=== PATIENT | female | born 1980 | race Caucasian/White ===

== ENCOUNTER 2021-03-01 07:24 | Inpatient (IN) | payer BC ==
[~2021-03-01] VITALS: Ht 180.3 cm; Wt 119.7 kg
[~2021-03-01 07:24] MED LIST: PANTOPRAZOLE SODIUM 40 MG TABLET.DR PO SCH
--- NOTE | 2021-03-01 07:43 | NUR ---
[email or web address], medical screening exam in progress
[2021-03-01] MEDS ORDERED: VANCOMYCIN IV 1,000 MG in IV DEXTROSE 5% 250 ML IV ONE (07:45)
[2021-03-01] MEDS ORDERED: CEFTRIAXONE 2 G in IV DEXTROSE 5% 100 ML IV ONE (07:45)
[2021-03-01] MEDS ORDERED: IV NORMAL SALINE 500 ML BAG IV ONE (07:45)
[2021-03-01] MEDS ORDERED: ROSU10TA2 PO (07:46)
[2021-03-01] MEDS ORDERED: METF-440 PO (07:46)
[2021-03-01] MEDS ORDERED: FLUO40CA8 PO (07:46)
[2021-03-01] MEDS ORDERED: LORAZEPAM 2 MG/1 ML VIAL IV ONE (08:00)
[2021-03-01] MEDS ORDERED: VANCOMYCIN IV 200 ML ONE (08:04)
[2021-03-01 08:13] LABS: HEMATOCRIT 38.8 % (31.2-41.9); MEAN CORPUSCULAR HEMOGLOBIN 31.4 uug (24.7-32.8); MEAN CORPUSCULAR VOLUME 90.9 fL (75.5-95.3); PLATELET COUNT (AUTO) 350 K/uL (179-408)
[2021-03-01 08:36] LABS: BILIRUBIN,TOTAL 0.8 mg/dL (0.2-1.0); CREATININE 0.9 mg/dL (0.6-1.3); POTASSIUM 3.7 mmol/L (3.5-5.1); TOTAL PROTEIN, SERUM 9.2 g/dL (6.4-8.2)
[2021-03-01] MEDS ORDERED: LORAZEPAM 2 MG/1 ML VIAL ONE (08:36)
[2021-03-01] MEDS ORDERED: CLINDAMYCIN PHOSPHATE IV 900 MG in IV DEXTROSE 5% 100 ML IV ONE (08:45)
[2021-03-01] MEDS ORDERED: CLINDAMYCIN 900MG/D5W 100ML IVPB **ER PYXIS ONLY IJ ONE (08:50)
--- NOTE | 2021-03-01 08:55 | NUR ---
Patient is resting comfortably on gurney with eyes closed, pending available med-surgical bed & accepting [email or web address] time
[2021-03-01] MEDS ORDERED: MORPHINE SULFATE 4 MG/1 ML DISP.SYRIN IV ONE ×2 (09:00→10:00)
[2021-03-01] MEDS ORDERED: ONDANSETRON 4 MG/2 ML VIAL IV ONE (09:00)
[2021-03-01] MEDS ORDERED: ONDANSETRON 4 MG/2 ML VIAL ONE (09:13)
[2021-03-01] MEDS ORDERED: MORPHINE SULFATE 4 MG/1 ML DISP.SYRIN ONE ×2 (09:13→10:06)
--- NOTE | 2021-03-01 10:30 | NUR ---
ADMITTED VIA [facility], ACCOMPANIED BY ER NURSE ELISA. ORIENTED TO SURROUNDINGS. DR. MIX CALLED FOR ADMITTING ORDERS. RESTING IN BED WITH RIGHT HAND ELEVATED, & ICE PACKS TO HAND.
[2021-03-01] MEDS ORDERED: ACETAMINOPHEN 325 MG TABLET PO PRN (11:30)
[2021-03-01] MEDS ORDERED: ASPIRIN EC 81 MG TABLET.DR PO SCH (11:30)
[2021-03-01] MEDS ORDERED: ONDANSETRON 4 MG/2 ML VIAL IV PRN (11:30)
[2021-03-01] MEDS: METFORMIN HCL 500 MG TABLET PO SCH ×2 (11:48→18:01)
[2021-03-01] MEDS: HYDROCODONE/APAP 10-325 MG TABLET PO PRN ×2 (12:00→15:53)
[2021-03-01] MEDS ORDERED: CLINDAMYCIN PHOSPHATE 600 MG/4 ML VIAL IM SCH (12:00)
[2021-03-01 12:08] VITALS: BP 124/80
--- NOTE | 2021-03-01 13:30 | NUR ---
MULTIPLE VISITORS AT BEDSIDE REQUESTING DR. MANUEL. MESSAGES LEFT FOR DR. MANUEL X 2.
[2021-03-01] MEDS: CLINDAMYCIN PHOSPHATE IV 900 MG in IV DEXTROSE 5% 100 ML IV SCH ×2 (15:16→20:29)
[2021-03-01 16:16] VITALS: BP 110/55
--- NOTE | 2021-03-01 17:00 | NUR ---
VISITORS AT BEDSIDE. DR. MIX CALLED FOR INCREASED PAIN MEDS.
[2021-03-01] MEDS ORDERED: MORPHINE SULFATE 4 MG/1 ML DISP.SYRIN IV PRN (17:30)
--- NOTE | 2021-03-01 19:30 | NUR ---
AO x 4, on room air, pt is anxious about her right hand, right hand elevated with ice pack, no signs of acute distress. Call lights within reach, safety measures initiated.
[2021-03-01 20:15] VITALS: BP 130/72
--- NOTE | 2021-03-01 20:15 | NUR ---
Spoke to patient's mother, mother is anxious about pt's care and when orthopedic md will see pt, informed pt's mother that MD will not be in until tomorrow.
--- NOTE | 2021-03-01 21:05 | NUR ---
Patient and mother are anxious and upset. They requested to speak to a doctor. Stated they have not seen a doctor since they came in from ER and were expecting to see an ortho surgeon. Spoke to Dr. Vanegas who states he will see the patient tomorrow and ortho will eval as well and request to explain to patient she has been started on ABX pending evaluation. Spoke to patient and explained this. She is upset but verbalizes understanding. Offered to call her mother but she refused.
--- NOTE | 2021-03-01 21:54 | NUR ---
Spoke to patients mother who states she wants to take daughter to another hospital. Explained that patient will be seen in am by MD but still wants to take daughter out. Spoke with patient, she is pleasant but also request to leave Against medical advise. Dr. Vanegas made aware.
--- NOTE | 2021-03-01 22:00 | NUR ---
Patient signed AMA, Made aware about risks and consequences involved in leaving hospital if no continued treatment is seeked. Patient states she will go to [facility] with mother once she leaves from here.
--- NOTE | 2021-03-01 22:17 | NUR ---
Patient left unit at this time, refused wheelchair. SBA provided by [facility] and walked to front of building where mother is waiting for her. IV discontinued. Patient took all her belongings. Copy of AMA given.
== END 2021-03-01 22:19 | disposition left against medical advice (07) | DRG 558 ==
LOC: ER 07:29 → MEDSURG3 10:02
PROVIDERS: ADMIT Nurse Practitioner Acute Care; ATTEND Nurse Practitioner Acute Care
DX: M65.141 Other infective (teno)synovitis, right hand (principal); S61.451A Open bite of right hand, initial encounter; W55.03XA Scratched by cat, initial encounter; Y93.89 Activity, other specified; E11.9 Type 2 diabetes mellitus without complications; Z79.84 Long term (current) use of oral hypoglycemic drugs; W55.01XA Bitten by cat, initial encounter; Y92.009 Unspecified place in unspecified non-institutional (private) residence as the place of occurrence of the external cause; F41.9 Anxiety disorder, unspecified; Z79.899 Other long term (current) drug therapy
CPT/HCPCS: 36415; 73130; 83605; 85025; 85610; 85651; 86140; 87040; 93005; A4663; G0378; J0696; J2060; J2270; J2405; J3370; J3490; J7030; J7060